=== PATIENT | male | born 1985 | race Caucasian/White ===

== ENCOUNTER 2024-07-22 11:37 | Emergency (ER) | payer SELFPAY, OTHER ==
[2024-07-22] MEDS ORDERED: Ondansetron PF 4 MG/2 ML Vial ONE (11:56)
[2024-07-22] MEDS ORDERED: fentaNYL 50 mcg/mL 1 mL Vial ONE (11:56)
[2024-07-22] MEDS ORDERED: Ketorolac Tromethamine 30 MG (1 mL) VIAL ONE (14:02)
[2024-07-22] MEDS ORDERED: Iopamidol-370 76% 500 ML MDV (1 ML CHARGE) ONE (14:29)
== END 2024-07-22 14:04 | disposition home or self-care (01) ==
LOC: ERS 11:37
DX: S42.001A Fracture of unspecified part of right clavicle, initial encounter for closed fracture (principal); V86.65XA Passenger of 3- or 4- wheeled all-terrain vehicle (ATV) injured in nontraffic accident, initial encounter
CPT/HCPCS: 70450; 71260; 74177; 96374; 96375; J1885; J2405; J3010; Q9967